=== PATIENT | female | born 1980 ===

== ENCOUNTER → 2021-05-22 | Outpatient (CLI) | payer SELFPAY ==
--- NOTE | 2021-05-23 12:58 | RAD ---
INDICATION: 40 years of age asymptomatic female patient presents for screening mammography. TECHNIQUE: Full field craniocaudal and mediolateral oblique images of both breasts were obtained usi ng digital technique with tomosynthesis and also analyzed with computer-aided detection software. COMPARISON: This is a baseline examination. BREAST COMPOSITION: Category C: The breast tissue is heterogeneously dense, which could obscure detec tion of small masses. FINDINGS: No suspicious masses, microcalcifications or architectural distortion is present to suggest malignanc y in either breast. The visualized axillae are unremarkable. IMPRESSION: No mammographic evidence of malignancy. RECOMMENDATION: Annual screening mammography is recommended, unless clinically indicated sooner based on symptoms or change in physical exam. BIRADS 2: BENIGN This study was interpreted with the benefit of Computerized Aided Detection (CAD). ?Your patient's mammogram demonstrates that she has dense breast tissue (breast density category C or D), which could hide abnormalities, and if she has other risk factors for breast cancer that have be en identified, she might benefit from supplemental screening tests that may be suggested by you as he r ordering physician. Dense breast tissue, in and of itself, is a relatively common condition. Theref ore, this information is not provided to cause undue concern, but rather to raise your awareness and to promote discussion with your patient regarding the presence of other risk factors, in addition to dense breast tissue. Your patient's mammography results will be sent to her. Patient information is entered into the reminder system with a target due date for the next screening mammogram. Mammography is the most sensitive method for finding small breast cancers, but it does not detect the m all and is not a substitute for careful clinical examination. A negative mammogram does not negate a clinically suspicious finding and should not result in delay in biopsying a clinically suspicious a bnormality. "Our facility is accredited by the [employer] Mammography Program." Electronically signed by: Vamsi Sharpe MD (05/23/2021 12:56 PM) [id number]
== END ==
LOC: MAMMO 15:16
PROVIDERS: ATTEND Family Medicine
DX: Z12.31 Encounter for screening mammogram for malignant neoplasm of breast (principal)
CPT/HCPCS: 77063; 77067

== ENCOUNTER 2021-06-29 00:30 | Emergency (ER) | payer BC ==
[~2021-06-29] VITALS: Ht 165.1 cm; Wt 72.7 kg
[2021-06-29] MEDS ORDERED: FLUORESCEIN OPHTH TEST STRIP. OU ONE (02:00)
[2021-06-29] MEDS ORDERED: TETRACAINE 0.5% OPHTH SOLUTION 4ML BOTTLE. OD ONE (02:00)
[2021-06-29 02:05] LABS: BASO % 0 % (0-3); EOS # 0.2 x10^3/uL (0.0-0.7); EOS % 2 % (0-3); HEMOGLOBIN 12.3 g/dL (12.0-15.5); LYMPH % 19 % (24-48); MEAN CORPUSCULAR HEMOGLOBIN 28 pg (25-35); MEAN CORPUSCULAR HGB CONC 33 g/dL (31-37); MEAN CORPUSCULAR VOLUME 85 fL (79-100); MONO # 0.6 x10^3/uL (0.0-1.1); MONO % 6 % (0-9); NEUT # 7.4 x10^3/uL (1.8-7.7); NEUT % 73 % (31-73); PLATELET COUNT 341 x10^3/uL (140-400); RED BLOOD COUNT 4.34 x10^6/uL (3.50-5.40); RED CELL DISTRIBUTION WIDTH 13.3 % (11.5-14.5); WHITE BLOOD COUNT 10.2 x10^3/uL (4.0-11.0)
[2021-06-29] MEDS ORDERED: fentaNYL PF VIAL 100 MCG/2 ML VIAL IVP ONE (02:15)
[2021-06-29 02:17] LABS: CALCIUM 8.1 mg/dL (8.5-10.1); CREATININE 0.5 mg/dL (0.6-1.0); GFR 136.6; POTASSIUM 3.7 mmol/L (3.5-5.1)
[2021-06-29 02:22] LABS: PREG TEST PT QUAL NEGATIVE (NEG)
[2021-06-29 02:23] LABS: ALBUMIN 3.6 g/dL (3.4-5.0); ALBUMIN/GLOBULIN RATIO 1.1 (1.0-1.7); C-REACTIVE PROTEIN 3.7 mg/L (0-3.3); TOTAL BILIRUBIN 0.5 mg/dL (0.2-1.0)
[2021-06-29] MEDS ORDERED: IOHEXOL 300 MG/ML 100ML VIAL. IV ONE (02:30)
[2021-06-29] MEDS ORDERED: CONTRAST GIVEN. MC PRN (02:30)
--- NOTE | 2021-06-29 03:04 | RAD ---
CT head without contrast. CT orbits with contrast PQRS statement: CT scans at this facility use dose reduction including either automated exposure cont rol, iterative reconstructions, and /or weight based radiation dosing via mA and kV modification when appropriate to reduce radiation dose to as low as reasonably achievable. Contrast: 100 mL Isovue 370 intravenous contrast HISTORY: Headache. Right orbital pain. Right retro-orbital pain. CT head findings: No intracranial hemorrhage, mass, hydrocephalus, extra-axial fluid collections or i nfarction. Right maxillary sinus cyst. Orbits, mastoids and bones are unremarkable. IMPRESSION: No acute intracranial abnormality. CT orbits findings: Bilateral right greater than left maxillary sinus cysts. Orbits intact. No fractu res of the orbits. No orbital edema, mass or hematoma. Ocular globes, optic nerves, extraocular muscl es, orbital fat and lacrimal glands normal. Ophthalmic arteries have patent contrast enhancement. No periorbital edema. IMPRESSION: Normal CT orbits. Electronically signed by: Myles Villanueva MD (06/29/2021 3:01 AM) [facility]
--- NOTE | 2021-06-29 03:26 | PHYS DOC ---
Past Medical History Past Surgical History: Hysterectomy Smoking Status: Never Smoker Alcohol Use: Occasionally Adult General Chief Complaint Chief Complaint: EYE PROBLEMS HPI HPI The patient is a 40-year-old female, Divehi-speaking, who is otherwise completely healthy and has no chronic medical conditions. She presents for evaluation of progressively worsening painful red right eye. Patient has had symptoms for a total of 7 to 8 days. She does not remember any specific eye injury or any exposure to any particulate matter or metal grinding and she does not wear contacts or other corrective lenses. She states the eye just started g etting painful and red and this has progressed gradually to the point where it is intolerable. Associated very significant photophobia to the point where patient is unable to tolerate bright light for formal visual acuity testing. She can count fingers with the affected eye at a few feet. Associated right retro-orbital headache rated at a 9 out of 10 in severity. No associated fevers, nausea or vomiting, focal or lateralizing weakness, numbness or tingling, neck stiffness/pain/meningismus (patient ranges her neck fully in all dimensions out discomfort or distress), upper respiratory congestion/rhinorrhea, cough, sore throat, shortness of breath or chest pain of any kind, recent injury or trauma to her head. Patient reports no history of prior similar symptoms. She is alert and oriented and pleasantly and appropriately interactive and in no acute distress with completely appropriate vital signs upon initial evaluation here in the emergency department. Review of Systems Review of Systems A 12 point review of systems was completed and was negative except where noted in HPI above. Current Medications Current Medications Current Medications Medications (Trade) Dose Ordered Sig/Miguel Start Time Stop Time Status Last Admin Dose Admin Fentanyl Citrate (Fentanyl 2ml Vial) 50 mcg 1X ONCE 06/29/21 02:15 06/29/21 02:16 DC 06/29/21 02:09 50 MCG Fluorescein Sodium (Ful-Lizbeth) 1 strip 1X ONCE 06/29/21 02:00 06/29/21 02:01 DC 06/29/21 01:43 1 STRIP Info (CONTRAST GIVEN -- Rx MONITORING) 1 each PRN DAILY PRN 06/29/21 02:30 07/01/21 02:29 Iohexol (Omnipaque 300 Mg/ml) 70 ml 1X ONCE 06/29/21 02:30 06/29/21 02:31 DC 06/29/21 02:44 70 ML Tetracaine HCl (Tetracaine) 1 drop 1X ONCE 06/29/21 02:00 06/29/21 02:01 DC 06/29/21 01:43 1 DROP Allergies Allergies Allergies Coded Allergies Type Severity Reaction Last Updated Verified No Known Drug Allergies 06/29/21 No Physical Exam Physical Exam 40-year-old female appearing nontoxic and in no acute distress. Head is normocephalic and atraumatic. Neck is supple and nontender. Patient ranges her neck fully in all dimensions without discomfort or distress and there is no stiffness/rigidity/meningismus seen. Oropharynx is moist. Tympanic membranes are clear bilaterally. No EAC or mastoid abnormalities bilaterally. Oropharynx is moist. No temporal tenderness/palpable cord bilaterally. Intraocular pressures grossly equal to palpation bilaterally. Right eye with generalized erythema with appropriately reactive pupil, no hypopyon or hyphema, no obvious cell and flare on slit-lamp exam and no obvious epithelial defect or other acute abnormality on stained exam. Tonometry with average intraocular pressure of just over 30 on the right and normal on the left. Lungs are clear to auscultation at all stations. There is a normal S1 and S2 without rubs or gallops and capillary refill is appropriate, less than 2 seconds globally. Abdomen is soft, nontender nondistended. Skin is warm and dry without cyanosis, clubbing or edema. Psychiatrically, the patient demonstrates appropriate mood and affect and is alert. Neurologically, cranial nerves II through XII are intact and there are no lateralizing deficits seen. Speech is normal. Language is normal. Coordination is normal. There is no dysmetria with [id number] or yeck-ei-[id number] bilaterally. Strength is 5 out of 5 in all joints of bilateral upper and lower extremities. Sensations intact light touch in bilateral upper and lower extremities. Patient ambulates with a narrow, steady, non-ataxic gait here in the emergency department and is alert and oriented x4. Current Patient Data Vital Signs Vital Signs Date Time Temp Pulse Resp B/P (MAP) Pulse Ox O2 Delivery O2 Flow Rate FiO2 06/29/21 02:14 60 18 101/69 (80) 99 Room Air 06/29/21 00:48 97.4 97.4 Lab Values Laboratory Tests Test 06/29/21 01:55 White Blood Count 10.2 x10^3/uL (4.0-11.0) Red Blood Count 4.34 x10^6/uL (3.50-5.40) Hemoglobin 12.3 g/dL (12.0-15.5) Hematocrit 37.0 % (36.0-47.0) Mean Corpuscular Volume 85 fL (79-100) Mean Corpuscular Hemoglobin 28 pg (25-35) Mean Corpuscular Hemoglobin Concent 33 g/dL (31-37) Red Cell Distribution Width 13.3 % (11.5-14.5) Platelet Count 341 x10^3/uL (140-400) Neutrophils (%) (Auto) 73 % (31-73) Lymphocytes (%) (Auto) 19 % (24-48) L Monocytes (%) (Auto) 6 % (0-9) Eosinophils (%) (Auto) 2 % (0-3) Basophils (%) (Auto) 0 % (0-3) Neutrophils # (Auto) 7.4 x10^3/uL (1.8-7.7) Lymphocytes # (Auto) 2.0 x10^3/uL (1.0-4.8) Monocytes # (Auto) 0.6 x10^3/uL (0.0-1.1) Eosinophils # (Auto) 0.2 x10^3/uL (0.0-0.7) Basophils # (Auto) 0.0 x10^3/uL (0.0-0.2) Erythrocyte Sedimentation Rate 15 (0-25) Sodium Level 140 mmol/L (136-145) Potassium Level 3.7 mmol/L (3.5-5.1) Chloride Level 104 mmol/L (98-107) Carbon Dioxide Level 23 mmol/L (21-32) Anion Gap 13 (6-14) Blood Urea Nitrogen 9 mg/dL (7-20) Creatinine 0.5 mg/dL (0.6-1.0) L Estimated GFR (Cockcroft-Gault) 136.6 BUN/Creatinine Ratio 18 (6-20) Glucose Level 107 mg/dL (70-99) H Calcium Level 8.1 mg/dL (8.5-10.1) L Total Bilirubin 0.5 mg/dL (0.2-1.0) Aspartate Amino Transferase (AST) 12 U/L (15-37) L Alanine Aminotransferase (ALT) 23 U/L (14-59) Alkaline Phosphatase 64 U/L (46-116) C-Reactive Protein, Quantitative 3.7 mg/L (0-3.3) H Total Protein 7.0 g/dL (6.4-8.2) Albumin 3.6 g/dL (3.4-5.0) Albumin/Globulin Ratio 1.1 (1.0-1.7) Serum Test, Qualitative Negative (NEG) Laboratory Tests 06/29/21 01:55 Laboratory Tests 06/29/21 01:55 EKG EKG [] Radiology/Procedures Radiology/Procedures CT head without contrast. CT orbits with contrast PQRS statement: CT scans at this facility use dose reduction including either automated exposure control, iterative reconstructions, and /or weight based radiation dosing via mA and kV modification when appropriate to reduce radiation dose to as low as reasonably achievable. Contrast: 100 mL Isovue 370 intravenous contrast HISTORY: Headache. Right orbital pain. Right retro-orbital pain. CT head findings: No intracranial hemorrhage, mass, hydrocephalus, extra-axial fluid collections or infarction. Right maxillary sinus cyst. Orbits, mastoids and bones are unremarkable. IMPRESSION: No acute intracranial abnormality. CT orbits findings: Bilateral right greater than left maxillary sinus cysts. Orbits intact. No fractures of the orbits. No orbital edema, mass or hematoma. Ocular globes, optic nerves, extraocular muscles, orbital fat and lacrimal gland s normal. Ophthalmic arteries have patent contrast enhancement. No periorbital edema. IMPRESSION: Normal CT orbits. Electronically signed by: Margie Villanueva MD (06/29/2021 3:01 AM) [facility] [place] DICTATED and SIGNED BY: MARGIE VILLANUEVA MD DATE: 06/29/21 [id number] [] Course & Med Decision Making Course & Med Decision Making Labs and imaging nonacute. CRP only very minimally elevated at 3.7. ESR still pending at this writing. Discomfort not improved with topical tetracaine. Fentanyl given for discomfort with good relief. Concerning presentation; feel patient requires further urgent evaluation by ophthalmology and she has no outpatient follow-up readily available. Therefore, will transfer to the [facility] emergency department for immediate ophthalmology evaluation and further care. Patient is graciously excepted in transfer to that facility by Dr. Harvey. Sheree Disclaimer Sheree Disclaimer This electronic medical record was generated, in whole or in part, using a voice recognition dictation system. Departure Departure Impression: Primary Impression: Corneal erythema of right eye Additional Impression: Acute right eye pain Disposition: 02 SHORT TERM HOSPITAL Condition: STABLE Referrals: DUNIA CRUMP MD (PCP) Problem Qualifiers BRENNA SEVILLA MD Jun 29, 2021 03:26
[2021-06-29 03:40] VITALS: BP 100/62
== END 2021-06-29 03:46 | disposition short-term general hospital (02) ==
LOC: ER 00:30
DX: H57.11 Ocular pain, right eye (principal); R51.9 Headache, unspecified
CPT/HCPCS: 36415; 70450; 70481; 80053; 84703; 85025; 85651; 86140; 96374; 99285; J3010; Q9967